=== PATIENT | female | born 1975 | race Caucasian/White ===

== ENCOUNTER 2018-09-03 21:34 | Emergency (ER) | payer BC ==
--- NOTE | 2018-09-03 23:25 | ED ---
Lower Extremity - HPI Summary HPI Summary: 43-year-old female presents with complaints of left foot pain and swelling for the past 2 weeks. States pain is located to the lateral aspect of her left foot. Describes as an aching. Worsens with ambulation and bearing weight. States swelling does go down when she elevates or during the night after she lays down in bed but then returns upon standing and moving about. Denies injury , fever, chills, erythema, lesions, calf pain or swelling, chest pain, or shortness of breath. - History of Current Complaint Chief Complaint: EDExtremityLower Stated Complaint: PAIN IN LEFT FOOT/PAIN IN RIBS Time Seen by Provider: 09/03/18 23:11 Hx Obtained From: Patient Pain Intensity: 10 - Allergies/Home Medications Allergies/Adverse Reactions: Allergies Allergy/AdvReac Type Severity Reaction Status Date / Time No Known Allergies Allergy Verified 06/30/18 12:25 PMH/Surg Hx/FS Hx/Imm Hx Previously Healthy: Yes - Denies significant PMH - Cancer History Hx Chemotherapy: No Hx Radiation Therapy: No Infectious Disease History: No Infectious Disease History: Denies: Traveled Outside the in Last 30 Days - Social History Occupation: Employed Full-time Lives: Alone Review of Systems Negative: Fever, Chills Negative: Palpitations, Chest Pain Negative: Shortness Of Breath, Cough Gastrointestinal: Negative Positive: no symptoms reported Positive: Other - See HPI Skin: Negative Neurological: Negative All Other Systems Reviewed And Are Negative: Yes Physical Exam - Summary Physical Exam Summary: GENERAL APPEARANCE: Well developed, obese, alert and cooperative adult female who appears to be in no acute distress. CARDIAC: Normal S1 and S2. No S3, S4 or murmurs. Rhythm is regular. There is no peripheral edema, cyanosis or pallor. Extremities are warm and well perfused. Capillary refill is less than 2 seconds. Peripheral pulses intact. LUNGS: Clear to auscultation without rales, rhonchi, wheezing or diminished breath sounds. ABDOMEN: Positive bowel sounds. Soft, nondistended, nontender. No guarding or rebound. No masses or hepatosplenomegally. MUSKULOSKELETAL: Tenderness and mild swelling noted to lateral left foot without bruising, erythema, or lesions. ROM intact. No joint erythema or tenderness. Normal muscular development. Calf supple and nontender. NEUROLOGICAL:Strength and sensation intact. SKIN: Skin normal color, texture and turgor with no lesions or eruptions. Vital Signs On Initial Exam: Initial Vitals Temp Pulse Resp BP Pulse Ox 98 F 91 20 140/87 100 09/03/18 21:45 09/03/18 21:45 09/03/18 21:45 09/03/18 21:45 09/03/18 21:45 Diagnostics - Vital Signs Vital Signs Temp Pulse Resp BP Pulse Ox 09/03/18 21:45 98 F 91 20 140/87 100 - Laboratory Lab Statement: Any lab studies that have been ordered have been reviewed, and results considered in the medical decision making process. - Radiology No standard instances Radiology Interpretation Completed By: ED Physician - No acute fracture or dislocation Lower Extremity Course/Dx - Course Course Of Treatment: 43-year-old female presents with complaints of left foot pain and swelling for the past 2 weeks. States pain is located to the lateral aspect of her left foot. Describes as an aching. Worsens with ambulation and bearing weight. States swelling does go down when she elevates or during the night after she lays down in bed but then returns upon standing and moving about. Denies injury, fever, chills, erythema, lesions, calf pain or swelling, chest pain, or shortness of breath. Afebrile. She is mildly hypertensive otherwise vital signs are within normal parameters. Exam reveals an obese adult female in no acute distress. She has some tenderness over the lateral aspect of her left foot with some mild swelling. Skin is intact without any lesions, erythema, or bruising. Calf is supple and nontender. Remainder of exam is unremarkable. X-ray of the left foot shows no acute fracture or dislocation. Suspect a sprain of the foot. Recommend naproxen 500 mg twice a day for the next 7 days then as needed for pain, and RICE. She is to follow-up with her primary care provider in 7 days if symptoms do not improve. Warning symptoms were reviewed with the patient. She verbalizes understanding and agrees with plan of care. - Diagnoses Differential Diagnosis/HQI/PQRI: Positive: Arthritis, Cellulitis, Contusion, Fracture (Closed), Sprain, Strain Provider Diagnoses: Sprain of left foot Discharge - Sign-Out/Discharge Documenting (check all that apply): Patient Departure - Discharge Plan Condition: Stable Disposition: HOME Prescriptions: Naproxen [Naproxen 500 mg tab] 500 mg PO Q12HR #30 tablet Patient Education Materials: Foot Sprain (ED) Referrals: Anjel Du NP [Primary Care Provider] - 7 Days (If no improvement) Additional Instructions: The x-ray of your foot performed in the emergency room tonight showed no evidence of a fracture. The x-ray will be reviewed by the radiologist tomorrow. We will notify if there is any change in the plan of care. Take naproxen 500 mg 1 tablet every 12 hours with food for next 7 days. You may then take every 12 hours as needed for pain. Rest the foot as much as possible. You may use an SHAQ wrap to help reduce swelling. Elevate the foot whenever sitting to help reduce swelling. Follow up with your primary care provider in 7 days if no improvement in symptoms. Seek immediate medical attention if you develop fever greater than 100.5 F, have redness that spreads, pain that is not managed with pain medications, pain or swelling in the calf, chest pain, shortness of breath, or any worsening of symptoms. - Billing Disposition and Condition Condition: STABLE Disposition: Home
[2018-09-03] MEDS ORDERED: Naproxen TAB* 250 MG PO ONE (23:37)
[2018-09-03 23:45] VITALS: BP 126/79
== END 2018-09-03 23:51 | disposition home or self-care (01) ==
LOC: ED 21:34
DX: S93.602A Unspecified sprain of left foot, initial encounter (principal); X58.XXXA Exposure to other specified factors, initial encounter; Y92.9 Unspecified place or not applicable
CPT/HCPCS: 99282; A9270-GY